=== PATIENT | female | born 1960 | race Caucasian/White ===

== ENCOUNTER 2018-07-25 11:04 | Emergency (ER) | payer MEDICAID ==
[~2018-07-25] VITALS: Ht 165.1 cm; Wt 77.1 kg
[2018-07-25 11:20] VITALS: BP_SYST 130
--- NOTE | 2018-07-25 11:25 | NUR ---
Patient to ER bed 2 to gown for evaluation. Side rails up. Report given to Katherine HAMMER.
--- NOTE | 2018-07-25 11:26 | NUR ---
ER at bedside examining patient.
--- NOTE | 2018-07-25 11:30 | NUR ---
Pt presents to ED c/o cough and hemoptysis x 4 days.Pt ahs no acute resp distress noted.
--- NOTE | 2018-07-25 11:59 | NUR ---
Patient given written and verbal discharge instructions and verbalizes understanding. ER MD discussed with patient the results and treatment provided. Patient in stable condition. ID arm band removed. Rx of ZITHROMAX, TYLENOL, ROBITUSSIN given. Patient educated on pain management and to follow up with PMD. Pain Scale 3/10 TOLERABLE. Opportunity for questions provided and answered. Medication side effect fact sheet provided.
[2018-07-25 12:01] VITALS: BP_SYST 130
== END 2018-07-25 11:59 | disposition home or self-care (01) ==
LOC: SED 11:04
DX: J20.9 Acute bronchitis, unspecified (principal); J02.9 Acute pharyngitis, unspecified; R05 Cough; R03.0 Elevated blood-pressure reading, without diagnosis of hypertension
CPT/HCPCS: 99283

== ENCOUNTER 2021-06-21 21:30 | Emergency (ER) | payer MEDICAID, OTHER ==
[~2021-06-21] VITALS: Ht 154.9 cm; Wt 77.1 kg
[2021-06-21 21:40] VITALS: BP_SYST 125
[2021-06-21] MEDS ORDERED: IBUP-1971 PO (22:56)
[2021-06-21] MEDS ORDERED: IBUPROFEN 800 MG TABLET PO ONE (23:00)
[2021-06-21 23:03] VITALS: BP_SYST 125
== END 2021-06-21 23:03 | disposition home or self-care (01) ==
LOC: SED 21:30
DX: S92.412A Displaced fracture of proximal phalanx of left great toe, initial encounter for closed fracture (principal); W22.8XXA Striking against or struck by other objects, initial encounter; Y93.89 Activity, other specified; Y92.89 Other specified places as the place of occurrence of the external cause; Y99.8 Other external cause status
CPT/HCPCS: 99283